=== PATIENT | female | born 1990 | race Caucasian/White ===

== ENCOUNTER 2022-08-13 15:40 | Outpatient (CLI) | payer OTHER ==
[~2022-08-13 15:40] MED LIST: AMOX1TAB12 PO; BACTROBAN NASAL1 GM NS; KETO10TA2 PO; SMZ-TMP DS 800-1 TAB PO
== END 2022-08-13 16:37 | disposition home or self-care (01) ==
LOC: NST 15:40
PROVIDERS: ATTEND Obstetrics & Gynecology
DX: Z34.83 Encounter for supervision of other normal pregnancy, third trimester (principal)

== ENCOUNTER 2022-09-05 11:23 | Outpatient (CLI) | payer OTHER | END 2022-09-05 12:19 | disposition home or self-care (01) | LOC: NST 11:23 | PROVIDERS: ATTEND Obstetrics & Gynecology Maternal & Fetal Medicine | DX: Z34.83 Encounter for supervision of other normal pregnancy, third trimester (principal) ==

== ENCOUNTER 2022-10-15 09:10 | Outpatient (CLI) | payer OTHER | END 2022-10-15 09:53 | disposition home or self-care (01) | LOC: NST 09:10 | PROVIDERS: ATTEND Obstetrics & Gynecology | DX: Z34.83 Encounter for supervision of other normal pregnancy, third trimester (principal) ==